=== PATIENT | female | born 1985 | race Caucasian/White ===

== ENCOUNTER 2018-02-14 21:18 | Emergency (ER) | payer BC ==
[~2018-02-14] VITALS: Ht 165.1 cm; Wt 84.4 kg
[2018-02-14 21:25] VITALS: BP 130/83
--- NOTE | 2018-02-14 23:34 | NUR ---
PATIENT TO ER BED 11.
--- NOTE | 2018-02-14 23:35 | NUR ---
PATIENT PRESENTS TO ED WITH C/O COUGH X3 DAYS. REFERRED FROM PCP. PT DENIES N/V/D; AAOX4 WITH EVEN AND STEADY GAIT; LUNGS CLEAR BL; HR EVEN AND REGULAR; PATIENT STATES PAIN OF 5/10 AT THIS TIME; PATIENT POSITIONED FOR COMFORT; HOB ELEVATED; BEDRAILS UP X2; BED DOWN. ER MD MADE AWARE OF PT STATUS.
[2018-02-15] MEDS ORDERED: ALBUTEROL 0.083% 2.5 MG/3 ML NEBU INH ONE (00:20)
[2018-02-15] MEDS ORDERED: IPRATROPIUM 0.02% 0.5 MG/2.5 ML NEBU INH ONE (00:20)
[2018-02-15] MEDS ORDERED: predniSONE 20 MG TAB PO ONE (00:20)
[2018-02-15] MEDS ORDERED: AZITHROMYCIN 250 MG TAB PO ONE (00:20)
--- NOTE | 2018-02-15 01:22 | NUR ---
Patient discharged with v/s stable. Written and verbal after care instructions given and explained. Patient alert, oriented and verbalized understanding of instructions. Ambulatory with steady gait. All questions addressed prior to discharge. ID band removed. Patient advised to follow up with PMD. Rx of ALBUTEROL 90MCG/, PREDNISON 20MG, ZITHROMAX Z-PACK 250MG given. Patient educated on indication of medication including possible reaction and side effects. Opportunity to ask questions provided and answered.
[2018-02-15 01:25] VITALS: BP 122/70
== END 2018-02-15 01:22 | disposition home or self-care (01) ==
LOC: MED 21:18
DX: J45.901 Unspecified asthma with (acute) exacerbation (principal); F32.9 Major depressive disorder, single episode, unspecified; F41.9 Anxiety disorder, unspecified
CPT/HCPCS: 71045; 94640; 99283; J7512; J7613; J7644; Q0092